=== PATIENT | female | born 1975 | race Caucasian/White ===

== ENCOUNTER → 2020-07-13 13:16 | Outpatient (BNVA) | payer MEDICARE, SELFPAY | PROVIDERS: Visit Provider Obstetrics & Gynecology | DX: Z11.52 Encounter for screening for COVID-19 (principal); N80.3 Endometriosis of pelvic peritoneum; R10.2 Pelvic and perineal pain | CPT/HCPCS: 87635 ==

== ENCOUNTER 2020-07-18 05:44 | Day surgery (SDC) | payer MEDICARE, SELFPAY ==
[2020-07-13 12:34] VITALS: BMI 17.4
--- NOTE | 2020-07-13 14:00 | ANES.PREANE2 ---
Pre-Anesthetic Assessment Pre-Anesthetic Assessment: Height/Weight: Height 1.57 m Weight 43.091 kg Preop Diagnosis: Pelvic Pain, Endometriosis Proposed Procedure: Operation Date: 07/18/20 07:00 Proposed Procedures p Laparoscopic Salpingo Oophorectomy [address] Marcum use lap lissy drape/don't use stirrups(Right) - Aaron Marcum MD Was Beta Stanley taken within 24 hours: N/A Was Clonidine taken within 24 hours: N/A Social: Social History: Tobacco and No alcohol Exam: Pre-Anes Outpt Exam: alert, oriented x 3 and regular rate & rhythm Airway: Submandibular: WNL Cervical ROM: WNL MP: 2 Dentition: False Pulmonary: Pulmonary: COPD Neuropsych: Neuropsych: Anxiety and Depression Anesthetic Plan: ASA status: 3 Anesthesia: General Risk of > 500 ml blood loss (7ml/kg in children): No PFSH Anesthesia PFSH: Medical History Asthma affecting in first trimester Chronic back pain Depression Endometriosis of pelvis Longstanding history, dating back to before 2006. Eventually had hysterectomy. Migraine headache Surgical History History of back surgery (08/22/05) Microdiscectomy (per patient) History of left salpingo-oophorectomy (10/15/11) Laparoscopic LSO. DX: Pelvic pain. Performed by Dr. Marcum at [facility] in [place], [facility]. Findings: Left ovary adherent to the vaginal cuff. S/P appendectomy (~1989) S/P insertion of spinal cord stimulator (10/20/07) S/P laparoscopic assisted vaginal hysterectomy (LAVH) (10/08/06) DX: Pelvic pain, Endometriosis. Performed by Dr. Hoover at [facility] in [place], [place]. S/P laparoscopic cholecystectomy (09/28/09) Performed by Dr. Juárez at [facility] in [place], [place] S/P laparoscopy (08/29/06) SEBASTIÁN, Cautery of endometriosis. Performed by Dr. Hoover at [facility] in [place], [place]. Findings: Endometrial implants of right ovarian fossa and right uterosacral ligament S/P laparoscopy (04/26/09) SEBASTIÁN. Dx: Pelvic pain. Performed by Dr. Hoover at [facility] in [place], [place]. Findings: Omental adhesions to vaginal cuff. S/P laparoscopy (02/27/16) SEBASTIÁN, Cautery of endometriosis. DX: Pelvic pain, Adhesions, Endometriosis. Performed by Dr. Marcum at [facility] in [place], [place]. Findings: Adhesions of colon to anterior and lateral abdominal wall at site of appendectomy, adhesions of small bowel to right pelvic brim, adhesions of sigmoid to left pelvic brim, endometriosis of left uterosacral ligament Family History Family/Other Diabetes Multiple aunts and uncles Grandfather CAD (coronary artery disease) Social History (Updated 07/13/20 @ 10:54 by Aaron Marcum MD) Smoking and tobacco status: current every day smoker cigarettes Packs smoked per day: 0.5 [ Other cigarette details: Started age 13. ] Alcohol intake: former Female Reproductive History: Date of last menstrual period: 10/09/05 Data Anesthesia Cardiac Studies: No Data to Display
[2020-07-18] VITALS (10 sets, daily range): BP systolic 94–139; BP diastolic 65–78; PULSE 78–86; RESP 16–78; TEMP 36.5–37; O2SAT 94–100
[2020-07-18] MEDS: acetaminophen 1,000 MG/100 ML PIGGYBACK 400 MG IV (06:35)
[2020-07-18] MEDS: sodium chloride 0.9% 1,000 ML 30 ML IV (06:35)
--- NOTE | 2020-07-18 06:35 | P.ANESUD_ITS ---
Pre-Anesthetic Update Pre-Anesthetic Assessment: Date of Surgery/Procedure: 07/18/20 Preop Miguelina gnosis: Pelvic Pain, Endometriosis Proposed Procedure: Operation Date: 07/18/20 07:00 Proposed Procedures p Laparoscopic Salpingo Oophorectomy [address] Marcum use lap lissy drape/don't use stirrups(Right) - Aaron Marcum MD Any changes to Pre-Anesthetic Assessment?: No Last Intake: Intake Last Liquid Date 07/17/20 Last Liquid Time 20:00 Last Solid Date 07/17/20 Last Solid Time 18:00 Vitals: Temperature 97.7 F 07/18/20 06:01 Temperature Source Temporal Artery S can 07/18/20 06:01 Pulse Rate 82 07/18/20 06:01 Pulse Rhythm 07/18/20 06:00 Pulse Strength 3+ Normal 07/18/20 06:00 Respiratory Rate 78 H 07/18/20 06:01 Blood Pressure 139/76 07/18/20 06:01 Blood Pressure Kya n 97 07/18/20 06:01 Pulse Oximetry 100 07/18/20 06:01 Oxygen Delivery Me thod 07/18/20 06:01 Exam: Pre-Anes Outpt Exam: alert, oriented x 3, clear to auscultation bilaterally and regular rate & rhythm Cardiac Studies: No Data to Display
--- NOTE | 2020-07-18 06:49 | W.PM.OPSUD ---
Surgery/Procedure H&P Update DATE OF PROCEDURE: July 18, 2020 DATE H&P PERFORMED: 07/13/20 H&P UPDATE INFORMATION: I have reviewed H&P completed within last 30 days, I have examined patient prior to procedure, No changes to prior documentation and [place] [facility] [place] date indicated PREOP DIAGNOSIS: Pelvic Pain, Endometriosis PLANNED PROCEDURE: Operation Date: 07/18/20 07:00 Proposed Procedures p Laparoscopic Salpingo Oophorectomy [address] Marcum use gay stanforde drape/don't use stirrups(Right) - Aaron Marcum MD
[2020-07-18] MEDS: midazolam 1 mg/mL INJ 2 mL 2 MG IVP (06:56)
[2020-07-18] MEDS: gabapentin 300 mg Capsule PO (06:57)
[2020-07-18] MEDS: ondansetron 2 mg/ML SDV 2 mL 4 MG IVP (06:57)
[2020-07-18] MEDS: ketorolac 30 mg/mL INJ IVP (06:57)
--- NOTE | 2020-07-18 07:47 | SUR.OPER ---
xylocaine-mpf used for local due to allergy. 10 ml injected to abdominal area
--- NOTE | 2020-07-18 08:07 | PM.OP ---
Operative Report Date of procedure: July 18, 2020 Pre-op Diagnosis: Pelvic Pain, Endometriosis Post-op Diagnosis: Endometriosis, Pelvic pain Procedure Done: Laparoscopic right salpingo-oophorectomy, Cauterization of endometriosis Specimens removed/disposition: Right tube and ovary Surgeon: Aaron Marcum Cloth Roll Winder: None Anesthesia: General Estimated blood loss (mL): 5 IV fluids (mL): 550 Complications: None Findings: No adhesions noted. Endometrial implants of the posterior cul-de-sac and left ovarian fossa. Endometrial implant on the sigmoid colon. Brief History: Patient is a 44-year-old female, 0, status post LAVH in 2006 for endometriosis. She has had a longstanding history of chronic abdominal and pelvic pain with multiple surgeries for evaluation and treatment of pain and endometriosis. In addition to the hysterectomy, she had a laparoscopic left salpingo-oophorectomy in 2011. Following each of her surgeries, she has improvements in her pain but pain slowly returns over time. Her last surgical evaluation and treatment for pain was in 2015. She presented to the office on 02/24/2020 reporting her pain having returned slowly over the last 2 years. It had significantly worsened over the previous 6 months. It is intermittent in nature but does worsen in a cyclic fashion. She is also reporting pain with bowel movements or with sudden type of movements like coughing, sneezing etc. When its at its worst she was rating it a 10 out of 10 in intensity. At this point, she only has her right ovary remaining. We had discussed with her trying suppressive therapy or proceeding to surgical evaluation with or without removal of her remaining ovary. At this point patient wishes to proceed with removal of her remaining ovary. She is presenting for that at this time. Procedure: The patient was taken to the operating room where general anesthesia was obtained. She was prepped and draped in the usual sterile fashion in the dorsal supine position. Sequential compression boots were placed prior to starting the case. Shrestha catheter was inserted. The infraumbilical region was injected with 1% lidocaine plain (preservative-free). Skin incision was made with a knife in the lower edge of the navel and a size 10 trocar and sheath were inserted under direct visualization using an Optiview type technique. Trocar was removed and replaced with just the laparoscope confirming intra-abdominal placement. The anterior abdominal wall was inspected and noted to be free of adhesions. In the right lower quadrant, the skin was injected with preservative-free 1% lidocaine plain. Skin incision was made with the knife and a 5 mm trocar and sheath were inserted under direct visualization. Pelvis was thoroughly inspected. No adhesions were noted. Left ovary and uterus were surgically absent. Endometrial implants both clear and powder burn lesions were noted of the posterior cul-de-sac and the left ovarian fossa. A red lesion was noted on the sigmoid colon. Approximately 2 cm above the pubic symphysis in the midline, skin was injected with preservative-free 1% lidocaine plain. Skin incision was made with a knife and a 5 mm trocar and sheath inserted under direct visualization. Using the Voyant sealing device, the right infundibulopelvic ligament was sealed and cut and the ovary and tube was dissected away from the pelvis until it was completely freed. Using monopolar cautery with a spatula attachment, the areas of endometriosis along the posterior cul-de-sac and left ovarian fossa were ablated. Care was taken not to damage underlying structures in the process. The bowel lesion was not treated as it would most likely require resection of the area. A laparoscopic pouch was passed through the umbilical site and the ovary placed into the pouch. After enlarging the fascial incision at the navel, the pouch was able to be removed. The abdomen was then further inspected and the dissection area noted to be hemostatic. The fascial incision at the navel was closed with interrupted stitches of 0 Vicryl suture. Good pneumoperitoneum was able to be maintained after closure. The abdomen was deflated and the remaining sheaths were removed. The 5 mm sites were closed with single stitches of 4-0 Vicryl suture. The umbilical site was closed with a deep stitch of 4-0 Vicryl suture followed by subcuticular closure the skin. Dermabond were applied to the sites. Shrestha catheter was removed at the end of the case. Patient tolerated the procedures well. Sponge and needle counts were correct. DRAINS: None POSTOPERATIVE STATUS: The patient was transferred to the recovery room in satisfactory condition. DISPOSITION: Patient was to be discharged home when criteria was met. FOLLOWUP APPOINTMENT: Patient was to followup in my office on 07/31/2020. PRESCRIPTIONS: She received prescriptions for: [place] 5/325, 1 to 2 tablets every 6 hours as needed for pain, #15, 0 refills
--- NOTE | 2020-07-18 08:27 | SUR.PHASEI ---
PT AWAKES TO VOICE BUT QUICKLY BACK TO SLEEP VSS ABD FLAT AND SOFT NO BLEEDING NOTED, GOOD RESP NOTED.
--- NOTE | 2020-07-18 10:56 | SUR.PHASEII ---
patient has been awake and alert, ready to be discharged for some time now. patient has been on the phone arranging a hotel room to be discharged to. she is now able to check in and ready to be discharged, she is awake and alert and able to ambulate.
--- NOTE | 2020-07-18 14:18 | ANE.PACU2 ---
Inpatient post-anesthesia follow up: Airway intact: Yes Vital signs: Temperature 98.2 F Pulse Rate 78 Respiratory Rate 18 Blood Pressure 109/67 Pulse Oximetry 99 Oxygen Delivery Me thod Room Air Oxygen Flow Rate 8 Fraction of Inspir ed Oxygen Hydration adequate: Yes Nausea and vomiting: No Pain level: 2 Mental status: Baseline
== END 2020-07-18 10:30 | disposition home or self-care (01) ==
PROVIDERS: Visit Provider Obstetrics & Gynecology
PROC: (CPT 58661; principal; 2020-07-18 07:00)
DX: R10.2 Pelvic and perineal pain (principal); N80.9 Endometriosis, unspecified; J44.9 Chronic obstructive pulmonary disease, unspecified; F41.9 Anxiety disorder, unspecified; F32.9 Major depressive disorder, single episode, unspecified; F17.210 Nicotine dependence, cigarettes, uncomplicated
CPT/HCPCS: 58661; 88305; 96365; 96374; 96375; J1170; J1885; J2250; J2405; J2704; J3010; J3490; J7030